=== PATIENT | male | born 1995 | race Caucasian/White ===

== ENCOUNTER 2017-08-04 22:49 | Emergency (ER) | payer BC ==
[2017-08-05] MEDS ORDERED: Ibuprofen TAB* 600 MG PO ONE (00:09)
[2017-08-05] MEDS ORDERED: oxyCODONE/Acetamin 5/325 MG* TAB PO ONE (00:09)
[2017-08-05 00:34] VITALS: BP 0/0
--- NOTE | 2017-08-05 04:34 | ED ---
Irineo Patricia Angela, scribed for Javon Echavarria MD on 08/05/17 at 0019 . Upper Extremity Pain - HPI Summary HPI Summary: This pt is a 22 y/o male presenting to [facility] c/o left shoulder pain today s/p fall. Pt reports he was in a hammock when he fell off and injured his left shoulder at approximately 22:00. Denies head strike or LOC. Pt denies any other injuries sustained from fall. He is right hand dominant. Denies any PMHx. - History of Current Complaint Chief Complaint: EDShoulderClavicleInj Stated Complaint: LT SHOULDER INJURY Hx Obtained From: Patient Mechanism Of Injury: Direct Blow, Fall From Height Of: - hammock Onset/Duration: Started Hours Ago - 2, Traumatic, Still Present Timing: Constant, Lasting Hours - 2 Severity Currently: Moderate Pain Location: Shoulder - left Aggravating Factor(s): Movement Alleviating Factor(s): Rest Related History: Dominant Hand Right - Allergies/Home Medications Allergies/Adverse Reactions: Allergies Allergy/AdvReac Type Severity Reaction Status Date / Time No Known Allergies Allergy Verified 08/04/17 23:08 PMH/Surg Hx/FS Hx/Imm Hx Endocrine/Hematology History: Denies: Hx Diabetes Cardiovascular History: Denies: Hx Hypertension Infectious Disease History: No Infectious Disease History: Denies: Traveled Outside the [place] in Last 30 Days - Family History Known Family History: Negative: Cardiac Disease, Hypertension - Social History Alcohol Use: None Substance Use Type: Reports: None Smoking Status (MU): Never Smoked Tobacco Review of Systems Negative: Fever ENT: Negative Cardiovascular: Negative Respiratory: Negative Gastrointestinal: Negative Musculoskeletal: Other - left shoulder pain Neurological: Negative All Other Systems Reviewed And Are Negative: Yes Physical Exam - Summary Physical Exam Summary: Appearance: Well appearing, no pain distress Skin: warm, dry, reflects adequate perfusion Head/face: normal Eyes: EOMI, GEOVANI ENT: normal Neck: supple, non-tender Respiratory: CTA, breath sounds present Cardiovascular: RRR, pulses symmetrical Abdomen: non-tender, soft Bowel: present Musculoskeletal: LUE: deformity on distal end of left clavicle. Arm is held in flexion. Crepitance and deformity on left clavicular head. Normal sensation over the deltoid. Normal sensation and motor function of left arm. Good pulses. Neuro: normal, sensory motor intact, A&Ox3 Triage Information Reviewed: Yes Vital Signs On Initial Exam: Initial Vitals Temp Pulse Resp BP Pulse Ox 99.3 F 104 16 117/83 100 08/04/17 23:00 08/04/17 23:00 08/04/17 23:00 08/04/17 23:00 08/04/17 23:00 Vital Signs Reviewed: Yes Diagnostics - Vital Signs Vital Signs Temp Pulse Resp BP Pulse Ox 08/04/17 23:00 99.3 F 104 16 117/83 100 - Laboratory Lab Statement: Any lab studies that have been ordered have been reviewed, and results considered in the medical decision making process. - Radiology Left shoulder XR Xray Interpretation: Positive (See Comments) - shoulder XR is negative aside for clavicular fracture Radiology Interpretation Completed By: ED Physician Left clavicle XR Xray Interpretation: Positive (See Comments) - clavicular head fracture Radiology Interpretation Completed By: ED Physician Course/Dx - Course Course Of Treatment: Patient with a significant fractures of the distal end of his clavicle. The extremity is neurovascularly intact. He was placed in a sling by me. He will follow-up with orthopedic surgery. He was given pain control here and prescription for same. - Diagnoses Provider Diagnoses: Clavicular fracture Discharge - Sign-Out/Discharge Documenting (check all that apply): Discharge/Admit/Transfer - Discharge - Discharge Plan Condition: Good Disposition: HOME Prescriptions: traMADol TAB* [Ultram*] 50 mg PO TID #10 tab MDD 3 Patient Education Materials: Clavicle Fracture (ED) Referrals: Adi Garnett MD [Medical Doctor] - Additional Instructions: Ice sore area. Keep shoulder immobilized for discomfort. Call the orthopedist in the morning to schedule follow-up appointment. Nonweightbearing in the left upper extremity - Billing Disposition and Condition Condition: GOOD Disposition: HOME The documentation as recorded by the Irineo luna Angela accurately reflects the service I personally performed and the decisions made by me, Javon Echavarria MD.
--- NOTE | 2017-08-05 07:41 | RAD ---
Indication: Left clavicle fracture. 2 views of left clavicle demonstrates fracture of the distal clavicle with depression and inferior angulation.. There is lucency in the distal clavicle and a pathologic fracture is not excluded. IMPRESSION: Comminuted fracture of the distal clavicle with inferior angulation.
--- NOTE | 2017-08-05 07:41 | RAD ---
INDICATION: Left shoulder injury. TECHNIQUE: 5 views of the left shoulder were obtained. FINDINGS: There is a comminuted displaced fracture of the distal clavicle. The fracture fragments are distracted. No additional fracture is seen. IMPRESSION: COMMINUTED DISPLACED FRACTURE OF THE CLAVICLE.
== END 2017-08-05 00:25 | disposition home or self-care (01) ==
LOC: ED 22:49
DX: S42.002A Fracture of unspecified part of left clavicle, initial encounter for closed fracture (principal); M25.512 Pain in left shoulder; W19.XXXA Unspecified fall, initial encounter; Y92.9 Unspecified place or not applicable
CPT/HCPCS: 99282; A9270-GY

== ENCOUNTER 2017-08-26 06:14 | Day surgery (SDC) | payer BC ==
[~2017-08-26 06:14] MED LIST: Buffered Lidocaine 0.9% SYRIN* 5 ML/SYR SYRINGE INTRADERM ONE
[2017-08-26] MEDS ORDERED: ceFAZolin 2 GM PREMIX (*) 2 GM/50 ML BAG IVPB ONE (06:19)
[2017-08-26] MEDS ORDERED: Midazolam* 1 MG/ML 2 ML VIAL (2 MG) ONE (06:49)
[2017-08-26] MEDS ORDERED: fentaNYL* 50 MCG/ML 2 ML VIAL (100 MCG VIAL) ONE ×3 (06:49→10:45)
[2017-08-26] MEDS ORDERED: Propofol* 10 MG/ML 20 ML BTL IV PUSH ONE (06:49)
[2017-08-26] MEDS ORDERED: Lidocaine 2% PF * 5 ML VIAL ONE (06:50)
[2017-08-26] MEDS ORDERED: PROCHLORPERAZINE INJ 5 MG/ML 2 ML VIAL IV PRN (07:13)
[2017-08-26] MEDS ORDERED: Acetaminophen TAB* 325 MG PO PRN (07:13)
[2017-08-26] MEDS ORDERED: Naloxone* 0.4 MG/ML 1 ML VIAL IV PRN (07:13)
[2017-08-26] MEDS ORDERED: HYDROmorphone INJ* 1 MG/ML CARPUJECT SYRINGE IV PRN (07:13)
[2017-08-26] MEDS ORDERED: oxyCODONE/Acetamin 5/325 MG* TAB PO PRN (07:13)
[2017-08-26] MEDS ORDERED: fentaNYL* 50 MCG/ML 2 ML VIAL (100 MCG VIAL) IV PRN (07:13)
[2017-08-26] MEDS ORDERED: Ondansetron INJ* 2 MG/ML VIAL IV PRN (07:13)
[2017-08-26] MEDS ORDERED: Lidocaine 2% PF* 10 ML AMP ONE (09:23)
[2017-08-26] MEDS ORDERED: Bupivacaine 0.5% PF 10 ML VIAL INJ ONE (09:23)
[2017-08-26] MEDS ORDERED: Ketorolac INJ* 30 MG/ML 1 ML VIAL ONE (09:36)
[2017-08-26] MEDS ORDERED: Bupivacaine 0.25% SDV* 30 ML ONE (10:02)
[2017-08-26] MEDS ORDERED: PROCHLORPERAZINE INJ 5 MG/ML 2 ML VIAL ONE (10:45)
[2017-08-26 11:07] VITALS: BP 127/63
--- NOTE | 2017-08-27 07:10 | OP ---
DATE OF OPERATION: 08/26/17 - [facility] DATE OF : 95 SURGEON: Yoav Almeida MD SHELL PLATER: HOLLIE Mg. An program services assistant was needed for the procedure to aid in positioning of the arm, retraction, and instrumentation. ANESTHESIOLOGIST: Estela Trujillo MD ANESTHESIA: General with regional block. PRE-OP DIAGNOSIS: Left displaced distal clavicle fracture. POST-OP DIAGNOSIS: Left displaced distal clavicle fracture. OPERATIVE PROCEDURE: Open reduction internal fixation of left displaced distal clavicle fracture. INDICATIONS: Sina is 22 years old. He had a very displaced distal third clavicle fracture. We had talked about risks and benefits of surgery. He had wanted to proceed with surgery. Given the level of displacement, I do think that was very reasonable and recommended. ESTIMATED BLOOD LOSS: 15 mL. COMPLICATIONS: None. FINDINGS: See above and below. DESCRIPTION OF PROCEDURE: Sina was seen in the preoperative holding area. The correct site, side, and procedure were identified. We came back to the operating room where he was positioned in the lazy beach chair position. The hand was prepped and draped in the usual fashion. A time-out was performed. I began by making a longitudinal incision over the distal half of the clavicle and over onto the acromion. Dissection was carried down. The AC ligaments were preserved. A subperiosteal dissection was performed exposing the proximal clavicle and the distal fragment. There was some soft callus formation as were a few weeks out from the fracture. This was taken down until I got back to nice bony edges. The fracture was reduced by bringing the arm up and pushing the clavicle down. The reduction was clamped into place. I then brought in my Synthes distal clavicle plate, I had both that and the subacromial hook plate available. I wanted to try to use the distal clavicle plate to avoid having to go through the AC joint causing any subacromial issues. I felt like I did have enough bone to do this. I bent and contoured the plate so it sat down nicely on the bone. I then secured the plate distally with multiple locking screws. I then came proximal and filled the proximal holes with 3.5-mm cortical screws. I was able to put a couple of cortical screws across the fracture as well in the more proximal aspect of the distal fragment. These grabbed on to the inferior surface of the clavicle. There was not really anything on the superior surface for the screws to grab on to. Once I was able to get all the screws in place, everything was looking good. It was solid. The bone was moving nicely as one piece. There was some excellent compression across the fracture. I did pack some of the removed callus around the fracture. The wound was irrigated out. I closed the clavipectoral fascia with 2-0 Vicryl suture with the knots buried. The subcutaneous tissue was reapproximated with 3 -0 Vicryl suture, skin was closed with 3-0 Monocryl suture and Steri-Strips. The wound was infiltrated with 0.25% plain Marcaine per the recommendations of the anesthesiologist, as she thought the medial side of the wound might need a little bit more local anesthesia as the block might not cover it. The wound was dressed with 4x4s and Tegaderm. The arm was placed in a sling. He was woken up and taken to the recovery room in stable condition. [id number]/[facility] #: [id number] YOGESH
--- NOTE | 2017-08-29 11:01 | RAD ---
INDICATION: Left clavicle ORIF, injury COMPARISONS: August 04, 2017 TECHNIQUE: Fluoroscopy was provided for a surgical procedure. Total fluoroscopy time is: 11.2 seconds FINDINGS: Spot images demonstrate internal fixation of the left clavicle. IMPRESSION: FLUOROSCOPY WAS PROVIDED FOR A SURGICAL PROCEDURE CPT II Codes: G9500
== END 2017-08-26 11:35 | disposition home or self-care (01) ==
LOC: OR 06:14
PROVIDERS: ATTEND Orthopaedic Surgery Hand Surgery
DX: S42.032A Displaced fracture of lateral end of left clavicle, initial encounter for closed fracture (principal); F41.8 Other specified anxiety disorders; W08.XXXA Fall from other furniture, initial encounter; Y92.9 Unspecified place or not applicable; G89.18 Other acute postprocedural pain
CPT/HCPCS: 76001; C1713; C1776; J0690; J0780; J1885; J2001; J2250; J2704; J3010

== ENCOUNTER 2018-03-18 17:56 | Emergency (ER) | payer BC ==
[2018-03-18] MEDS ORDERED: Meclizine TAB* 12.5 MG PO ONE (18:29)
[2018-03-18] MEDS ORDERED: NS 0.9% 1000 ML* 1,000 ML IV ONE (18:30)
[2018-03-18] MEDS ORDERED: Ketorolac INJ* 30 MG/ML 1 ML VIAL IV PUSH ONE (18:30)
[2018-03-18 18:53] LABS: ABS Basophils 0.1 10^3/ul (0-0.2); ABS Eosinophils 0.1 10^3/ul (0-0.6); ABS Lymphocytes 1.1 10^3/ul (1.0-4.8); ABS Monocytes 0.6 10^3/ul (0-0.8); ABS Neutrophils 6.2 10^3/ul (1.5-7.7); ABS Nucleated RBC 0 10^3/ul; Eosinophil % 1.2 %; Hematocrit 41 % (42-52); Hemoglobin 13.9 g/dl (14.0-18.0); Lymphocyte % 13.5 %; Mean Corpuscular HGB Conc 34 g/dl (31-36); Mean Corpuscular Hemoglobin 30 pg (27-31); Mean Corpuscular Volume 87 fL (80-94); Mean Platelet Volume 7.9 fL (7.4-10.4); Nucleated Red Blood Cells % 0; Platelet Count 368 10^3/ul (150-450); Red Blood Count 4.68 10^6/ul (4.00-5.40); Red Cell Distribution Width 13 % (10.5-15)
--- NOTE | 2018-03-18 19:01 | ED ---
Dizziness - HPI Summary HPI Summary: 23-year-old male presents with dizziness for the past 6 months. He states that symptoms are intermittent and only last an hour but today has lasted 6 hours. symptoms mostly happen at night. He states it is worse with positional changes. He states gets feeling that room is spinning and that is detached from reality. Has not tried anything for his symptoms. He admits occasional headache with the pain. He denies any change in vision. He states that caffeine makes it worse. He denies any recent illness. he denies any photophobia. No fevers. No sinus congestion. He has chronic neck pain. No nausea and vomiting. No head injury. Denies any chest pain or shortness of breath. Has no medical conditions. Hasn't followed with anyone about this. was sick last week with viral illness. - History Of Current Complaint Chief Complaint: EDDizziness Stated Complaint: DIZZINESS Time Seen by Provider: 03/18/18 18:08 - Allergies/Home Medications Allergies/Adverse Reactions: Allergies Allergy/AdvReac Type Severity Reaction Status Date / Time No Known Allergies Allergy Verified 03/18/18 18:03 PMH/Surg Hx/FS Hx/Imm Hx Endocrine/Hematology History: Denies: Hx Diabetes Cardiovascular History: Denies: Hx Hypertension, Other Cardiovascular Problems/Disorders Respiratory History: Reports: Other Respiratory Problems/Disorders - history of croup age 3 months GI History: Reports: Hx Jaundice - as an infant Denies: Other GI Disorders History: Denies: Other Problems/Disorders Musculoskeletal History: Reports: Other Musculoskeletal History - Displaced fracture of lateral end of left clavicle Sensory History: Denies: Hx Contacts or Glasses, Hx Hearing Aid Opthamlomology History: Denies: Hx Contacts or Glasses Neurological History: Denies: Other Neuro Impairments/Disorders Psychiatric History: Reports: Hx Anxiety - history of, no current meds, Hx Depression - history of, no current meds - Surgical History Surgery Procedure, Year, and Place: left clavical surg Infectious Disease History: No Infectious Disease History: Denies: Traveled Outside the [place] in Last 30 Days - Family History Known Family History: Positive: None - Pt denies PMHX Negative: Cardiac Disease, Hypertension - Social History Alcohol Use: Occasionally Substance Use Type: Reports: None Smoking Status (MU): Never Smoked Tobacco Review of Systems Negative: Fever Negative: Chest Pain Negative: Shortness Of Breath Neurological: Other - dizziness Positive: Headache All Other Systems Reviewed And Are Negative: Yes Physical Exam Triage Information Reviewed: Yes Vital Signs On Initial Exam: Initial Vitals Temp Pulse Resp BP Pulse Ox 98.2 F 111 16 141/73 95 03/18/18 18:03 03/18/18 18:03 03/18/18 18:03 03/18/18 18:03 03/18/18 18:03 Vital Signs Reviewed: Yes Appearance: Positive: Well-Appearing Skin: Positive: Warm, Dry Head/Face: Positive: Normal Head/Face Inspection Eyes: Positive: Normal, EOMI, GEOVANI, Conjunctiva Clear, Other: - nystagmus on exam ENT: Positive: Normal ENT inspection, Pharynx normal, TMs normal Respiratory/Lung Sounds: Positive: Clear to Auscultation, Breath Sounds Present Cardiovascular: Positive: Normal, RRR Abdomen Description: Positive: Nontender, Soft Bowel Sounds: Positive: Present Musculoskeletal: Positive: Normal Neurological: Positive: Sensory/Motor Intact, Alert, Oriented to Person Place, Time, CN Intact II-III, Chantale-Cook Haakon Test - positive Psychiatric: Positive: Normal AVPU Assessment: Alert Diagnostics - Vital Signs Vital Signs Temp Pulse Resp BP Pulse Ox 03/18/18 18:33 104 99 03/18/18 18:32 99 139/87 98 03/18/18 18:03 98.2 F 111 16 141/73 95 - Laboratory Lab Results: Lab Results 03/18/18 Range/Units 18:45 WBC 8.0 (3.5-10.8) 10^3/ul RBC 4.68 (4.00-5.40) 10^6/ul Hgb 13.9 L (14.0-18.0) g/dl Hct 41 L (42-52) % MCV 87 (80-94) fL MCH 30 (27-31) pg MCHC 34 (31-36) g/dl RDW 13 (10.5-15) % Plt Count 368 (150-450) 10^3/ul MPV 7.9 (7.4-10.4) fL Neut % (Auto) 77.5 % Lymph % (Auto) 13.5 % Otero % (Auto) 7.2 % Eos % (Auto) 1.2 % Baso % (Auto) 0.6 % Absolute Neuts (auto) 6.2 (1.5-7.7) 10^3/ul Absolute Lymphs (auto) 1.1 (1.0-4.8) 10^3/ul Absolute Monos (auto) 0.6 (0-0.8) 10^3/ul Absolute Eos (auto) 0.1 (0-0.6) 10^3/ul Absolute Basos (auto) 0.1 (0-0.2) 10^3/ul Absolute Nucleated RBC 0 10^3/ul Nucleated RBC % 0 Result Diagrams: 03/18/18 18:45 03/18/18 18:45 Lab Statement: Any lab studies that have been ordered have been reviewed, and results considered in the medical decision making process. - EKG No standard instances Cardiac Rate: Tachycardia EKG Rhythm: Sinus Tachycardia Summary of EKG Findings: sinus tachycardia Re-Evaluation - Re-Evaluation First Eval Re-Evaluation Time: 19:49 Change: Improved Comment: vertigo improved Dizzy Course/Dx - Course Course Of Treatment: 23-year-old male presents with dizziness for the past 6 months. He states that symptoms are intermittent and only last an hour but today has lasted 6 hours. symptoms mostly happen at night. He states it is worse with positional changes. He states gets feeling that room is spinning and that is detached from reality. Has not tried anything for his symptoms. He admits occasional headache with the pain. He denies any change in vision. He states that caffeine makes it worse. He denies any recent illness. he denies any photophobia. No fevers. No sinus congestion. He has chronic neck pain. No nausea and vomiting. No head injury. Denies any chest pain or shortness of breath. Has no medical conditions. Hasn't followed with anyone about this. on exam has nystagmus present. normal neuro exam. pos chantale-cook pike. will prescribe meclizine. will have follow up with PT and primary. patient understand and agrees with plan. - Diagnoses Differential Diagnosis/HQI/PQRI: Benign Paroxysmal Positional Vertigo, Labyrinthitis, Metabolic Abnormality Provider Diagnoses: Vertigo Discharge - Sign-Out/Discharge Documenting (check all that apply): Patient Departure - Discharge Plan Condition: Good Disposition: HOME Patient Education Materials: Vertigo (ED) Referrals: Carter Adamson MD [Primary Care Provider] - [facility] Physical therapy,PT [Medical Doctor] - Additional Instructions: Follow up with primary Take meclizine up to 3 tablets a day for vertigo Drink plenty of fluids Follow up with physical therapy Return to ED if develop any new or worsening symptoms - Billing Disposition and Condition Condition: GOOD Disposition: Home
[2018-03-18 19:09] LABS: C Reactive Protein 12.51 mg/L (<8.01)
[2018-03-18 19:11] LABS: Albumin 4.3 g/dL (3.2-5.2); Albumin/Globulin Ratio 1.7 (1-3); BUN/Creatinine Ratio 15.3 (8-20); Calcium 9.1 mg/dL (8.6-10.3); EGFR Non-African American 94.8 (>60); Globulin 2.5 g/dL (2-4); Magnesium 2.2 mg/dL (1.9-2.7); Potassium 3.7 mmol/L (3.5-5.0); Total Bilirubin 0.6 mg/dL (0.2-1.0); Total Protein 6.8 g/dL (6.4-8.9)
[2018-03-18 19:48] LABS: TSH (Thyroid Stimulating Horm) 1.17 mcIU/mL (0.34-5.60)
[2018-03-18 20:22] VITALS: BP 141/72
== END 2018-03-18 20:22 | disposition home or self-care (01) ==
LOC: ED 17:56
DX: R42 Dizziness and giddiness (principal); R51 Headache; R00.0 Tachycardia, unspecified
CPT/HCPCS: 36415; 80053; 83605; 83735; 84443; 84484; 85025; 86140; 93005; 96374; 99282; A9270-GY; J1885

== ENCOUNTER 2018-06-22 11:02 | Day surgery (SDC) | payer BC ==
[~2018-06-22 11:02] MED LIST changes: -Buffered Lidocaine 0.9% SYRIN* 5 ML/SYR SYRINGE INTRADERM ONE; +Buffered Lidocaine 1% SYRIN* 1 ML/SYRINGE INTRADERM ONE; +Dexamethasone IV* 4 MG/ML 1 ML (4 MG) IV SLOW PU ONE; +Dexamethasone IV* 4 MG/ML 1 ML (4 MG) ONE; +Famotidine IV* 10 MG/ML 2 ML (20 mg) IV ONE; +Famotidine IV* 10 MG/ML 2 ML (20 mg) ONE; +Ketorolac INJ* 30 MG/ML 1 ML VIAL ONE; +Lactated Ringers 1000 ML Bag* 1,000 ML IV SCH; +Lidocaine 2% PF * 5 ML VIAL ONE; +Midazolam* 1 MG/ML 5 ML VIAL (5 MG) ONE; +Propofol* 10 MG/ML 20 ML BTL ONE; +fentaNYL* 50 MCG/ML 2 ML VIAL (100 MCG VIAL) ONE
[2018-06-22] MEDS ORDERED: Bupivacaine 0.25% SDV PF* 10 ML VIAL INJ ONE ×2 (11:10→13:02)
[2018-06-22] MEDS ORDERED: ceFAZolin 2 GM in NS PREMIX(*) 2 GM/100 ML BAG IVPB ONE (11:28)
[2018-06-22] MEDS ORDERED: Ondansetron INJ* 2 MG/ML VIAL ONE (12:21)
[2018-06-22 13:12] VITALS: BP 119/85
--- NOTE | 2018-06-22 16:57 | OP ---
DATE OF OPERATION: 06/22/18 [facility] DATE OF : 89 SURGEON: Yoav Almeida MD OB/GYN: HOLLIE Hampton. An special events assistant was needed for the procedure to aid in positioning of the arm and retraction. ANESTHESIOLOGIST: Dr. Rodríguez. ANESTHESIA: General. PRE-OP DIAGNOSIS: Healed left distal clavicle fracture with retained and symptomatic hardware. POST-OP DIAGNOSIS: Healed left distal clavicle fracture with retained and symptomatic hardware. OPERATIVE PROCEDURE: Removal of distal clavicle plate and screws. ESTIMATED BLOOD LOSS: 20 mL. COMPLICATIONS: None. FINDINGS: See above and below. INDICATIONS: Sina had the clavicle fixed a while back in August 2017. The plate is prominent and he wants to have it excised. DESCRIPTION OF PROCEDURE: Sina was seen in the preoperative holding area. The correct site, side, and procedure were identified. We came back to the operating room. The patient was positioned in the lazy beach chair position with a bump under the shoulder blade. The arm was prepped and draped in the usual fashion and a time-out was performed. I reopened his prior wound. Dissection was carried down and the clavipectoral fascia was opened. The plate was exposed. All of the proximal screws were removed with a hexagonal screwdriver and all the distal screws were then removed. Everything came out nice and smoothly. The wound was irrigated out. All the bone spurs and any rough edges were trimmed back with rongeur. The clavipectoral fascia was closed with 3-0 Vicryl suture. The subcutaneous tissue was reapproximated with 3-0 Vicryl suture. Skin was closed with 4-0 Monocryl and Steri-Strips. 0.25% Marcaine was infiltrated all around the operative area. The wound was dressed and the patient was taken to the recovery room in stable condition. [id number]/[facility] #: [id number] YOGESH
== END 2018-06-22 13:38 | disposition home or self-care (01) ==
LOC: OREAST 11:02
PROVIDERS: ATTEND Orthopaedic Surgery Hand Surgery
DX: T84.84XA Pain due to internal orthopedic prosthetic devices, implants and grafts, initial encounter (principal); S42.032D Displaced fracture of lateral end of left clavicle, subsequent encounter for fracture with routine healing; X58.XXXD Exposure to other specified factors, subsequent encounter; Y92.9 Unspecified place or not applicable; Y83.1 Surgical operation with implant of artificial internal device as the cause of abnormal reaction of the patient, or of later complication, without mention of misadventure at the time of the procedure; F41.8 Other specified anxiety disorders
CPT/HCPCS: 88300; J0690; J1100; J1885; J2250; J2405; J2704; J3010; J3490

== ENCOUNTER 2019-05-31 14:13 | Emergency (ER) | payer BC ==
--- OUTSIDE RECORDS SUMMARY | 2019-05-31 14:17 | XMS REPORT | Summary of Care ---
:1995 Author Organization [facility] Address [address] [place] [address] Care Team Providers Name Role Phone Carter Adamson MD Primary Care Provider Reason for Referral Diagnostic Radiology (Routine) Status Reason Specialty Diagnoses / Referred By Contact Referred To Procedures Contact Authorized Radiology Diagnoses Migraine without aura and without status migrainosus, not intractable Jaguar Gray MD Mri 550har Procedures MR Brain with and without Contrast [address] [facility] [address] [address] Phone: Email: [phone] [email or web address] Reason for Visit Diagnostic Radiology (Routine) Status Reason Specialty Diagnoses / Referred By Contact Referred To Procedures Contact Authorized Radiology Diagnoses Migraine without aura and without status migrainosus, not intractable Jaguar Gray MD Mri 550har Procedures MR Brain with and without Contrast [address] [address] Phone: Email: [phone] [email or web address] Encounter Details Date Type Department Care Team Description 05/09/2019 Hospital Encounter MRI [id number] Migraine without aura [address] and without status Pee F migrainosus, not [place], [place] intractable [id number] Allergies No Known Allergiesdocumented as of this encounter (statuses as of 05/10/2019) Medications Medication Sig Dispensed Refills Start Date End Date Status FLUoxetine HCl 40 MG Take 40 mg by 0 Active Oral Capsule (PROZAC) mouth daily Propranolol HCl ER 60 Take 1 pill QHS 60 capsule 5 04/10/2019 Active MG Oral Capsule for 2 weeks, Extended Release 24 then 2 pills QHS Hour (INDERAL LA) documented as of this encounter (statuses as of 05/10/2019) Active Problems No known active problemsdocumented as of this encounter (statuses as of 2019) Social History Tobacco Use Types Packs/Day Years Used Date Current Some Day Smoker Cigarettes Smokeless Tobacco: Never Used Alcohol Use Drinks/Week oz/Week Comments Yes Alcohol Habits Answer Date Recorded How often do you have a drink containing alcohol? 2-3 times a week 04/10/2019 How many drinks containing alcohol do you have on a 1 or 2 04/10/2019 typical day when you are drinking? How often do you have six or more drinks on one Never 04/10/2019 occasion? Sex Assigned at Date Recorded Not on file Job Start Date Occupation Industry Not on file Not on file Not on file Travel History Travel Start Travel End No recent travel history available. documented as of this encounter Last Filed Vital Signs Not on filedocumented in this encounter Plan of Treatment Date Type Specialty Care Team Description 09/12/2019 Office Visit Neurology Jaguar Gray MD [address] [place] [address] [phone] Health Maintenance Due Date Last Done Comments MMR Vaccines (1 of 1 - Standard 02/04/1996 series) Varicella Vaccines (1 of 2 - 02/04/1996 2-dose childhood series) Pneumococcal Vaccine: Pediatrics 2001 (0 to 5 Years) and At-Risk Patients (6 to 64 Years) (1 of 1 - PPSV23) DTaP,Tdap,and Td Vaccines (1 - 2002 Tdap) HIV Screening 02/04/2008 Influenza Vaccine 12/19/2018 Pneumococcal Vaccine: 65+ Years (1 02/04/2060 of 2 - PCV13) HIB Vaccines Aged Out No longer eligible based on patient's age to complete this topic Hepatitis A Vaccines Aged Out No longer eligible based on patient's age to complete this topic Hepatitis B Vaccines Aged Out No longer eligible based on patient's age to complete this topic IPV Vaccines Aged Out No longer eligible based on patient's age to complete this topic documented as of this encounter Procedures Procedure Name Priority Date/Time Associated Diagnosis Comments MR BRAIN WITH AND Routine 05/09/2019 11:26 AM Migraine without Results for this WITHOUT CONTRAST [place] [id number] status migrainosus, the results not intractable section. documented in this encounter Results MR Brain with and without Contrast (05/09/2019 11:26 AM EST) Specimen Impressions Performed At Impression: Unremarkable MRI brain without and with contrast. No Chiari [facility] malformation. Narrative Performed At Clinical Indication: 24 years Male, Headache, r/o Chiari [facility] Multiplanar multisequence MR images of the brain without and with contrast were submitted for interpretation Comparison: None. The ventricles and sulci are within normal limits. There is no midline shift. No foci of abnormal signal intensity are seen within the brain. There is no abnormal enhancement. There is n o acute intraparenchymal hemorrhage. There is no restricted diffusion. The pituitary gland is not enlarged. The posterior pituitary is identified. The corpus callosum is fully formed. The cerebe llar tonsils are normally located above the foramen magnum. Flow voids at the skull base are intact. Procedure Note Interface, Received Via [facility] System - 05/09/2019 1:39 PM EST Clinical Indication: 24 years Male, Headache, r/o Chiari Multiplanar multisequence MR images of the brain without and with contrast were submitted for interpretation Comparison: None. The ventricles and sulci are within normal limits. There is no midline shift. No foci of abnormal signal intensity are seen within the brain. There is no abnormal enhancement. There is no acute intraparenchymal hemorrhage. There is no restricted diffusion. The pituitary gland is not enlarged. The posterior pituitary is identified. The corpus callosum is fully formed. The cerebellar tonsils are normally located above the foramen magnum. Flow voids at the skull base are intact. Impression: Unremarkable MRI brain without and with contrast. No Chiari malformation. Performing Organization Address City/State/Zipcode Phone Number [facility] [address] [place] [address] documented in this encounter Visit Diagnoses Diagnosis Migraine without aura and without status migrainosus, not intractable Migraine without aura, without mention of intractable migraine without mention of status migrainosus documented in this encounter Administered Medications Medication Order MAR Action Action Date Dose Rate Site gadobutrol (GADAVIST) contrast Given 05/09/2019 11:10 AM EST 7 mLs injection 8 mL 8 mL (rounded from 8.09 mL = 0.1 mL/kg 80.9 kg), Intravenous, 1 TIME IMAGING, 05/09/19 at 1115, For 1 dose, Imaging Protocol, Do not mix or administer in the same IV line with other medications., documented in this encounter
--- OUTSIDE RECORDS SUMMARY | 2019-05-31 14:17 | XMS REPORT | Summary of Care ---
:1995 Author Organization [facility] Address [address] [address] Care Team Providers Name Role Phone Cal Adamsonew Dhaval Primary Care Provider Reason for Visit Sleep Study (Routine) Status Reason Specialty Diagnoses / Referred By Referred To Procedures Contact Contact Closed Sleep Disorder Diagnoses Throat swelling Louann Carrera, [facility] [address] [facility] [place] [phone] Phone: Encounter Details Date Type Department Care Team Description 04/11/2019 Hospital Encounter [facility] Sleep Lab Outpatient [address] [id number] Allergies No Known Allergiesdocumented as of this encounter (statuses as of 04/13/2019) Medications Medication Sig Dispensed Refills Start Date End Date Status topiramate (TOPAMAX) Take 1 Tab by 60 Tab 3 12/14/2018 Active 25 MG Oral Tab mouth DIRECTED. 1 at bedtime 10 days then 1 twice daily ondansetron (ZOFRAN) 4 Take 4 mg by mouth 18 Tab 0 01/22/2019 Active MG Oral Tab EVERY EIGHT HOURS NEEDED (nausea). Fluoxetine HCl Take 2 Caps by 180 Cap 3 02/12/2019 Active (PROZAC) 40 MG Oral mouth DAILY. 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 [place] stopped age 15 S/p therapy Citalopram treatment 2012 therapy [facility] [place], [place] 2012- documented as of this encounter (statuses as of 04/13/2019) Immunizations Name Administration Dates Next Due Influenza (IM) Preservative Free 11/29/2018, 01/27/2017, 01/10/2013 documented as of this encounter Social History Tobacco Use Types Packs/Day Years Used Date Never Smoker Smokeless Tobacco: Never Used Alcohol Use Drinks/Week oz/Week Comments No 0 Standard drinks or equivalent 0.0 Sex Assigned at Date Recorded Not on file Job Start Date Occupation Industry Not on file Not on file Not on file Travel History Travel Start Travel End No recent travel history available. documented as of this encounter Last Filed Vital Signs Not on filedocumented in this encounter Plan of Treatment Name Type Priority Associated Diagnoses Order Schedule REFER TO SLEEP STUDY LAB Referral Routine Throat swelling Ordered: 2018 Health Maintenance Due Date Last Done Comments DTaP/Tdap/Td Vaccines (1 - 2006 Tdap) DEPRESSION SCREENING 02/22/2019 02/22/2018, 02/22/2018 INFLUENZA VACCINE Completed 11/29/2018, 01/27/2017, 01/10/2013 HEPATITIS A IMMUNIZATION Aged Out No longer eligible based SERIES on patient's age to complete this topic HPV IMMUNIZATION SERIES Aged Out No longer eligible based on patient's age to complete this topic MENINGOCOCCAL VACCINE IMM Aged Out No longer eligible based on patient's age to complete this topic PNEUMOCOCCAL 0-64 YRS Aged Out No longer eligible based on patient's age to complete this topic documented as of this encounter Goals Goal Patient Goal Associated Recent Patient-Stated? Author Type Problems Progress Depression Depression 21 No Snow, screen (PHQ-9) (02/22/2018 Carter Puentes, total score < 5 2:51 PM EST) Note: This is an individualized treatment (depression) goal for Sina Coronado: Displayed above is your goal for a depression screening (PHQ-9) score that would indicate good control of your depression. Keep a regular sleep schedule Lifestyle Carter Rascon MD Note: This is an individualized lifestyle goal for Sina Coronado: Please maintain a regular sleep schedule. This may help with some symptoms of depression. Take all prescribed medications as Self-management Carter Rascon MD directed Note: This is an individualized self-management goal for Sina Coronado: Please take all prescribed medications as directed. 1. Do not skip doses. If you cannot afford your medications, talk with your doctor. 2. Use a pill reminder system such as a pill box if needed. Your pharmacist can help you with this. 3. Contact your Pharmacy 5 days before your medication runs out. If you cannot take your medications for any reasons, talk with your doctor. 4. Please bring all of your medication bottles and inhalers (or a list of all your medications/inhalers) with you to every visit. Potential barriers to meeting all of your care plan goals will continue to be addressed on an ongoing basis. documented as of this encounter Results Not on filedocumented in this encounter Insurance Payer Benefit Plan / Subscriber ID Effective Dates Phone Address Type Group BUD ADAIR xxxxxxxxxxxx 2013-Present [employer] (Home) [facility] [phone] [place], [place] (Work) [id number] documented as of this encounter
--- OUTSIDE RECORDS SUMMARY | 2019-05-31 14:17 | XMS REPORT | Summary of Care ---
:1995 Author Organization [facility] Address [address] [place] [address] Care Team Providers Name Role Phone Carter Adamson MD Primary Care Provider Reason for Referral Diagnostic Radiology (Routine) Status Reason Specialty Diagnoses / Referred By Contact Referred To Procedures Contact Open Radiology Diagnoses Migraine without aura and without status migrainosus, not intractable Jaguar Gray MD Procedures MR Brain with and without Contrast [address] [address] Email: [email or web address] Reason for Visit Reason Comments New Patient Consultation (Routine) Status Reason Specialty Diagnoses / Referred By Referred To Contact Procedures Contact Authorized Neurology Diagnoses Headache Carter Adamson Neurology Procedures referral to Gina Puentes MD Provider-Based [facility] [address] [place] [address] [address] [place] [address] 4th Floor, [address] Phone: [place], [place] [phone] Encounter Details Date Type Department Care Team Description 04/10/2019 Office Visit [facility] Neurology at Jaguar Gray MD Migraine without [facility] [address] [facility] aura and without Center 4th Floor status migrainosus, [address] [place] [address] not intractable 4th Floor, [address] (Primary Dx) [place] [address] Allergies No Known Allergiesdocumented as of this encounter (statuses as of 04/10/2019) Medications Medication Sig Dispensed Refills Start Date End Date Status FLUoxetine HCl 40 MG Take 40 mg 0 Active Oral Capsule (PROZAC) by mouth daily Propranolol HCl ER 60 Take 1 pill 60 capsule 5 04/10/2019 Active MG Oral Capsule QHS for 2 Extended Release 24 weeks, then Hour (INDERAL LA) 2 pills QHS ALPRAZolam 1 MG Oral Take 1 mg by 0 Discontinued Tablet (XANAX) mouth 0 nightly as needed for Sleep Ohksxcpfam-XDAZ-Zeldaj Take 1 0 Discontinued ne 50-325-40 MG Oral tablet by 0 Tablet (FIORICET, mouth every ESGIC) 6 (six) hours as needed for Pain Prochlorperazine Take 10 mg 0 Discontinued Maleate 10 MG Oral by mouth 0 Tablet (COMPAZINE) every 6 (six) hours as needed Topiramate 25 MG Oral Take 25 mg 0 Discontinued Capsule Sprinkle by mouth Two 0 (TOPAMAX) Times Daily documented as of this encounter (statuses as of 04/10/2019) Active Problems No known active problemsdocumented as [...] of this encounter Last Filed Vital Signs Vital Sign Reading Time Taken Comments Blood Pressure 125/70 04/10/2019 8:26 AM EST Pulse 91 04/10/2019 8:26 AM EST Temperature - - Respiratory Rate - - Oxygen Saturation - - Inhaled Oxygen Concentration - - Weight 80.9 kg (178 lb 6.4 oz) 04/10/2019 8:26 AM EST Height 172.7 cm (5' 8") 04/10/2019 8:26 AM EST Body Mass Index 27.13 04/10/2019 8:26 AM EST documented in this encounter Progress Notes Jaugar Gray MD - 04/10/2019 8:30 [place] [address] PATIENT NAME: Sina Coronado, DATE OF : 1995 . [facility] History of presenting illness Sina Coronado is a 24 y.o. male who presents to the clinic for evaluation of headache. MILLER started since teenager years but increased in intensity and frequency 2 years ago, while in "bad relationship". At this time, MILLER is usually daily, however he has cycles when it is not as predominant. MILLER almost always starts in the morning, upon awakening. It is located on top of head and described as pressure. Pain can reach 7-8/10. Its duration is very variable from 10-15 minutes, to the whole day, but on average 1 -2 hours. However, he still has "remnance" of the headache feeling that usually persists. He does not know what makes it disappear, but lying down helps. MILLER usually worsens when he lifts heavy objects. He may get exacerbation of headache for seconds to minutes when he lifts heavy even if he does not have headache at that moment. Head-down positions also worsen the headache significantly. OTC such as Excedrin, Ibuprofen and APAP did not help. Her has brain fog with headaches. He also has nausea/vomiting at times with headache. Very bright lights exacerbate his headaches, as do loud noises. No blurring of eyes. He has constant tinnitus but not pulsatile. He was attempted on Indocin, Naprosyn, Imitrex, Maxalt, Amerge Fioricet and Topamax 25 mg BID. He takes Prozac for anxiety which has been well controlled. In the past, he tried Paxil, effexor and zoloft. He drinks 1-2 cups of coffee a day. He snores during sleep, but he sleeps well overall. He is scheduled for a sleep study. No family history of migraines. Review of Systems Complete ROS was obtained and is negative except for what is mentioned in HPI Past Medical History: Diagnosis Date ADD (attention deficit disorder) Past Surgical History: Procedure Laterality Date CLAVICLE SURGERY 2018 Social History Socioeconomic History Marital status: Single Spouse name: Not on file Number of children: Not on file Years of education: Not on file Highest education level: Not on file Occupational History Not on file Social Needs Financial resource strain: Not on file Food insecurity: Worry: Not on file Inability: Not on file Transportation needs: Medical: Not on file Non-medical: Not on file Tobacco Use Smoking status: Current Some Day Smoker Types: Cigarettes Smokeless tobacco: Never Used Substance and Sexual Activity Alcohol use: Yes Frequency: 2-3 times a week Drinks per session: 1 or 2 Binge frequency: Never Drug use: Never Sexual activity: Yes Partners: Female Lifestyle Physical activity: Days per week: Not on file Minutes per session: Not on file Stress: Not on file Relationships Social connections: Talks on phone: Not on file Gets together: Not on file Attends christian service: Not on file Active member of club or organization: Not on file Attends meetings of clubs or organizations: Not on file Relationship status: Not on file Intimate partner violence: Fear of current or ex partner: Not on file Emotionally abused: Not on file Physically abused: Not on file Forced sexual activity: Not on file Other Topics Concern Not on file Social History Narrative Not on file Family History Problem Relation Age of Onset Anxiety disorder Mother Anxiety disorder Father No Known Problems Half brother No Known Allergies Current Outpatient Medications Medication Sig Dispense Refill FLUoxetine HCl 40 MG Oral Capsule (PROZAC) Take 40 mg by mouth daily No current facility-administered medications for this visit. Physical exam Visit Vitals BP 125/70 (BP Location: Left arm, Patient Position: Sitting) Pulse 91 Ht 1.727 m (5' 8") Wt 80.9 kg (178 lb 6.4 oz) BMI 27.13 kg/m General Examination: In no apparent distress, well developed and well nourished , and cooperative HEENT : atraumatic, normocephalic. Mild allodynia of scalp Neck: supple, no taut bands palpated Chest: Breathing comfortably on room air Extremities : no cyanosis, clubbing or edema Neurological exam: Alert and oriented x3, speech normal. Pupils symmetric and reactive to light. Extraocular movements intact with no nystagmus. Optic disc is flat OU. Face symmetric, V1-V3 intact to light touch Tongue is in midline, palate elevates upward symmetrically. Muscle tone and bulk normal, motor strength 5/5 throughout Sensation intact to light touch in upper and lower extremities No resting or positional tremor. Reflexes are brisk but symmetric in the upper and lower extremities. Finger to nose intact bilaterally. FRANK intact bilaterally. Gait narrow based and steady, able to walk on heels, toes and tandem walk. Images MRI cervical spine: 03/15/2018: normal Assessment and plan Sina presents with daily morning headache that lies in the middle between tension (for the mild ones) and migraine. He has some positional features that are concerning for secondary etiology such as Chiari Plan Obtain MRI brain w/wo contrast Start Propranolol 60 mg QHS for 2 weeks then 120 mg QHS. We explained the side effects including orthostatic hypotension, insomnia and ED. He will fax us the results of the sleep study scheduled for tomorrow RTC in 4 months documented in this encounter Plan of Treatment Name Type Priority Associated Diagnoses Order Schedule MR Brain with and Imaging Routine Migraine without aura and Expected: 04/10, without Contrast without status Expires: 07/09/2020 migrainosus, not intractable documented as of this encounter Results Not on filedocumented in this encounter Visit Diagnoses Diagnosis Migraine without aura and without status migrainosus, not intractable - Primary Migraine without aura, without mention of intractable migraine without mention of status migrainosus documented in this encounter
[2019-05-31 15:56] VITALS: BP 134/83
[2019-05-31 17:42] LABS: Influenza A Molecular Negative (Negative); Influenza B Molecular Negative (Negative)
--- NOTE | 2019-05-31 18:17 | UC ---
Throat Pain/Nasal Fuad HPI - HPI Summary HPI Summary: 24-year-old male presenting with sore throat and runny nose 3 days. Patient states her throat is worsening. Also notes intermittent nausea. States had a fever 3 days ago of 99.7. Denies chills and body aches. Denies cough. Denies respiratory wheezing. Denies vomiting. Normal appetite. Denies taking anything for symptom relief. - History of Current Complaint Chief Complaint: UCGeneralIllness Stated Complaint: SORE THROAT Hx Obtained From: Patient Pain Intensity: 0 - Allergies/Home Medications Allergies/Adverse Reactions: Allergies Allergy/AdvReac Type Severity Reaction Status Date / Time No Known Allergies Allergy Verified 05/31/19 15:56 Home Medications: Home Medications Fluoxetine HCl [Prozac] 60 mg PO QPM 06/15/18 [History Confirmed 05/31/19] PMH/Surg Hx/FS Hx/Imm Hx - Surgical History Surgical History: Yes Surgery Procedure, Year, and Place[place] [facility] [place] History Known Family History: Positive: None - Pt denies PMHX Negative: Cardiac Disease, Hypertension - Social History Alcohol Use: Weekly Alcohol Amount: 1-2 drinks per week Substance Use Type: None Smoking Status (MU): Never Smoked Tobacco Have You Smoked in the Last Year: No - Immunization History Most Recent Tetanus Shot: unkown Hx Tetanus, Diphtheria Vaccination: No - unkown Vaccination Up to Date: Yes Review of Systems All Other Systems Reviewed And Are Negative: Yes Constitutional: Positive: Fever - 99.7, Fatigue. Negative: Chills ENT: Positive: Sore Throat, Nasal Discharge Respiratory: Positive: Negative Cardiovascular: Positive: Negative Gastrointestinal: Positive: Negative Musculoskeletal: Positive: Negative Neurological/Mental Status: Positive: Negative Physical Exam Triage Information Reviewed: Yes Appearance: Well-Appearing, No Pain Distress, Well-Nourished Vital Signs: Initial Vital Signs Temp 99.8 F 05/31/19 15:52 Pulse 95 05/31/19 15:52 Resp 16 05/31/19 15:52 BP 134/83 05/31/19 15:52 Pulse Ox 99 05/31/19 15:52 Lab Results 05/31/19 05/31/19 Range/Units 17:30 17:45 Influenza A (Rapid) Negative (Negative) Influenza B (Rapid) Negative (Negative) Group A Strep Rapid Negative (Negative) Vital Signs Reviewed: Yes Eyes: Positive: Conjunctiva Clear ENT: Positive: Hearing grossly normal, Pharynx normal, TMs normal, Uvula midline. Negative: Nasal congestion, Nasal drainage, Tonsillar swelling, Tonsillar exudate, Sinus tenderness Neck exam: Normal Neck: Positive: Supple, Nontender, No Lymphadenopathy Respiratory Exam: Normal Respiratory: Positive: Lungs clear, Normal breath sounds, No respiratory distress, No accessory muscle use Cardiovascular Exam: Normal Cardiovascular: Positive: RRR Neurological: Positive: Alert Psychological: Positive: Age Appropriate Behavior Skin Exam: Normal - no erythema or ecchymosis Throat Pain/Nasal Course/Dx - Course Course Of Treatment: Negative rapid strep and flu. Discussed viral illness patient and instructed to treat symptomatically. Instructed to follow up with PCP if symptoms persist. Patient voiced understanding and agreed with the treatment plan. - Differential Dx/Diagnosis Differential Diagnosis/HQI/PQRI: Influenza, Pharyngitis, URI Provider Diagnosis: Pharyngitis, URI, acute Discharge ED - Sign-Out/Discharge Documenting (check all that apply): Patient Departure All imaging exams completed and their final reports reviewed: No Studies - Discharge Plan Condition: Stable Disposition: HOME Patient Education Materials: Pharyngitis (ED), Upper Respiratory Infection (ED) Forms: *Work Release Referrals: Carter Adamson MD [Primary Care Provider] - If Needed Additional Instructions: As discussed, your strep and flu test were negative. You may take your allergy medication to help relieve congestion. Throat lozenges and throat sprays may help alleviate sore throat. You may also take Tylenol or ibuprofen as directed. Follow up with your primary care provider if symptoms do not improve within 7- 10 days. - Billing Disposition and Condition Condition: STABLE Disposition: Home
== END 2019-05-31 18:15 | disposition home or self-care (01) ==
LOC: UCEAST 14:13
DX: J02.9 Acute pharyngitis, unspecified (principal); J06.9 Acute upper respiratory infection, unspecified
CPT/HCPCS: 87651; 99211; G0463

== ENCOUNTER 2019-07-12 07:09 | Emergency (ER) | payer BC ==
[2019-07-12] MEDS ORDERED: NS 0.9% 1000 ML** 1,000 ML IV ONE (07:11)
[2019-07-12] MEDS ORDERED: Ondansetron INJ* 2 MG/ML VIAL IV ONE (07:11)
--- NOTE | 2019-07-12 07:13 | ED ---
GI/ HPI - HPI Summary HPI Summary: 24 y/o male w no PMH p/w sharp epigastric abdominal pain, intermittent for several weeks. Patient reports it feels acidic like. Worse w alcohol. No fever or diarrhea. Has had intermittent symptoms for over one year. Had one episode of vomiting today. No NSAIDs. - History of Current Complaint Time Seen by Provider: 07/12/19 07:10 Stated Complaint: NAUSEA PER PT Hx Obtained From: Patient Onset/Duration: Still Present Timing: Intermittent Location of Pain: Epigastric Pain Characteristics: Sharp Aggravating Factor(s): Liquids - alcohol Alleviating Factor(s): Nothing - Allergy/Home Medications Allergies/Adverse Reactions: Allergies Allergy/AdvReac Type Severity Reaction Status Date / Time No Known Allergies Allergy Verified 07/12/19 07:47 Home Medications: Home Medications Fluoxetine HCl 80 mg PO DAILY 07/12/19 [History Confirmed 07/12/19] Omeprazole CAP (NF) [Prilosec CAP* 20 MG] 20 mg PO BID 30 Days #60 cap. [Rx] Ondansetron ODT TAB* [Zofran 4 MG Odt TAB*] 4 mg PO Q8H PRN 4 Days #12 tab.odt 07/12/19 [Rx] PMH/Surg Hx/FS Hx/Imm Hx Endocrine/Hematology History: Denies: Hx Diabetes Cardiovascular History: Denies: Hx Hypertension, Other Cardiovascular Problems/Disorders Respiratory History: Reports: Other Respiratory Problems/Disorders - history of croup age 3 months GI History: Reports: Hx Jaundice - as an infant Denies: Other GI Disorders History: Denies: Other Problems/Disorders Musculoskeletal History: Reports: Other Musculoskeletal History - Displaced fracture of lateral end of left clavicle Sensory History: Denies: Hx Contacts or Glasses Opthamlomology History: Denies: Hx Contacts or Glasses Neurological History: Denies: Other Neuro Impairments/Disorders Psychiatric History: Reports: Hx Anxiety - meds, Hx Depression - meds - Surgical History Surgical History: Yes Surgery Procedure, Year, and Place: left clavical surg 09/2017 [facility] [place] Hx Anesthesia Reactions: No - Family History Known Family History: Negative: Cardiac Disease, Hypertension - Social History Alcohol Use: Weekly Alcohol Amount: 1-2 drinks per week Substance Use Type: Reports: None Hx Tobacco Use: No Smoking Status (MU): Never Smoked Tobacco Have You Smoked in the Last Year: No Review of Systems Negative: Fever Positive: Abdominal Pain, Vomiting, Nausea. Negative: Diarrhea All Other Systems Reviewed And Are Negative: Yes Physical Exam - Summary Physical Exam Summary: Constitutional: Well-developed, Well-nourished, Alert. (-) Distressed Skin: Warm, Dry HENT: Normocephalic; Atraumatic Eyes: Conjunctiva normal Neck: Musculoskeletal ROM normal neck. (-) JVD, (-) Stridor, (-) Nuchal rigidity Cardio: Rhythm regular, rate normal, Heart sounds normal; Intact distal pulses; Radial pulses are 2+ and symmetric. (-) Murmur Pulmonary/Chest wall: Effort normal. (-) Respiratory distress, (-) Wheezes, (-) Rales Abd: Soft, mild epigastric tenderness, (-) Distension, (-) Guarding, (-) Rebound Musculoskeletal: (-) Edema Neuro: Alert, Oriented x3 Psych: Mood and affect Normal Triage Information Reviewed: Yes Vital Signs Reviewed: Yes Procedures - Sedation Patient Received Moderate/Deep Sedation with Procedure: No Diagnostics - Laboratory Result Diagrams: 07/12/19 07:29 07/12/19 07:29 Lab Statement: Any lab studies that have been ordered have been reviewed, and results considered in the medical decision making process. Re-Evaluation - Re-Evaluation First Eval Re-Evaluation Time: 08:15 Change: Improved - tolerating PO. GIGU Course/Dx - Course Course Of Treatment: 24 y/o male p/w epigastric tenderness, check basic labs and give GI cocktail. - exam and hx g/w gastritis. Will try omeprazole. Cr 1.3 , encouraged fluids and recheck w PCP. K hemolyzed. - Diagnoses Provider Diagnoses: Gastritis, Abdominal pain - Critical Care Time Critical Care Statement: Critical care time is provided exclusive of any time spent performing procedures. Discharge ED - Sign-Out/Discharge Documenting (check all that apply): Patient Departure - Discharge Plan Condition: Stable Disposition: HOME Prescriptions: Omeprazole CAP (NF) [Prilosec CAP* 20 MG] 20 mg PO BID 30 Days #60 cap. Ondansetron ODT TAB* [Zofran 4 MG Odt TAB*] 4 mg PO Q8H PRN 4 Days #12 tab.odt PRN Reason: Nausea/Vomiting Patient Education Materials: Gastritis (ED), Acute Nausea and Vomiting (ED) Referrals: Carter Adamson MD [Primary Care Provider] - Additional Instructions: You were seen in the emergency department for abdominal pain. Your labs did not show a cause for your pain. Your kidney number (creatinine) was slightly high today which can be seen in dehydration. Please follow up with your doctor about this. Please try taking omeprazole daily for acid reflux. If any studies were not completed at the time of discharge you will be called with the relevant results. Please follow up with your primary care doctor in next 2-3 days and return to emergency department for worsening pain, or concerning symptoms. It was a pleasure taking care of you today. - Billing Disposition and Condition Condition: STABLE Disposition: Home - Attestation Statements Document Initiated by Fely: Yes Documenting Scribe: Alba Massey Provider For Whom Fely is Documenting (Include Credential): Eli Garcia MD Scribe Attestation: IAlba, scribed for Eli Garcia MD on 07/12/19 at 0834. Scribe Documentation Reviewed: Yes Provider Attestation: The documentation as recorded by the Alba luna accurately reflects the service I personally performed and the decisions made by , Eli Garcia MD Status of Scribe Document: Viewed
[2019-07-12] MEDS ORDERED: Al Hydrox/Mg Hydrox/Simet LIQ* 30 ML UDC PO ONE (07:21)
[2019-07-12] MEDS ORDERED: Lidocaine 2% VISCOUS* 15 ML UDC PO ONE (07:21)
[2019-07-12 07:44] LABS: ABS Basophils 0.1 10^3/ul (0-0.2); ABS Eosinophils 0.1 10^3/ul (0-0.6); ABS Lymphocytes 1.6 10^3/ul (1.0-4.8); ABS Monocytes 0.7 10^3/ul (0-0.8); ABS Neutrophils 5.2 10^3/ul (1.5-7.7); Eosinophil % 1.9 %; Hematocrit 41 % (42-52); Hemoglobin 14.4 g/dL (14.0-18.0); Lymphocyte % 20.5 %; Mean Corpuscular HGB Conc 35 g/dL (31-36); Mean Corpuscular Hemoglobin 30 pg (27-31); Mean Corpuscular Volume 87 fL (80-94); Mean Platelet Volume 9.2 fL (7.4-10.4); Platelet Count 291 10^3/uL (150-450); Red Blood Count 4.75 10^6 /uL (4.18-5.48); Red Cell Distribution Width 13 % (10-15); White Blood Count 7.7 10^3/uL (3.5-10.8)
[2019-07-12 08:02] LABS: ALT 27 U/L (7-52); Albumin 4.4 g/dL (3.2-5.2); Albumin/Globulin Ratio 1.8 (1-3); Alkaline Phosphatase 67 U/L (34-104); BUN/Creatinine Ratio 15.9 (8-20); Blood Urea Nitrogen 21 mg/dL (6-24); CO2 Carbon Dioxide 26 mmol/L (22-32); Calcium 8.9 mg/dL (8.6-10.3); Chloride 105 mmol/L (101-111); EGFR African American 80.6 (>60); EGFR Non-African American 66.6 (>60); Globulin 2.4 g/dL (2-4); Glucose 105 mg/dL (70-100); Sodium 137 mmol/L (135-145); Total Protein 6.8 g/dL (6.4-8.9)
[2019-07-12 08:20] LABS: Anion Gap 6 mmol/L (2-11)
[2019-07-12 08:33] VITALS: BP 121/87
== END 2019-07-12 08:32 | disposition home or self-care (01) ==
LOC: ED 07:09
DX: K29.70 Gastritis, unspecified, without bleeding (principal); R10.13 Epigastric pain; R11.2 Nausea with vomiting, unspecified; F41.9 Anxiety disorder, unspecified; F32.9 Major depressive disorder, single episode, unspecified; Z72.0 Tobacco use
CPT/HCPCS: 36415; 80053; 83690; 85025; 96361; 96374; 99283; A9270-GY; J2405